=== PATIENT | female | born 1975 | race Two or more races ===

== ENCOUNTER 2016-10-11 16:35 | Inpatient (IN) | payer BC ==
[2016-10-11 17:38] VITALS: BMI 63.6
[2016-10-11] MEDS ORDERED: OXYTOCIN 10 UNIT/ML 1 ML VIAL IM PRN (17:39)
[2016-10-11] MEDS ORDERED: METHYLERGONOVINE 0.2 MG/ML 1 ML AMP IM PRN (17:39)
[2016-10-11] MEDS ORDERED: CARBOPROST TROMETHAMINE 250 MCG/ML 1 ML AMP IM PRN (17:39)
[2016-10-11] MEDS ORDERED: LIDOCAINE 1% (PF) 10 MG/ML (30 ML SDV) SQ PRN (17:39)
[2016-10-11] MEDS ORDERED: TERBUTALINE 1 MG/ML VIAL SQ PRN (17:39)
[2016-10-11 17:49] LABS: Basophils % (A) 1 %; CH 30.4; CHCM 34.6; Eosinophils % (A) 0 %; HCT 37.5 % (34.0-46.0); HDW 2.82; Luc # (Auto) 0.22; Luc % (Auto) 3; Lymphocytes # (A) 1.3 k/uL (1.0-4.8); Lymphocytes % (A) 16 %; MCH 30.6 pg (25.0-35.0); MCHC 34.6 g/dL (31.0-37.0); MCV 88.4 fL (80.0-100.0); Mean Platelet Volume 6.8; Monocytes # (A) 0.5 k/uL (0-1.0); Monocytes % (A) 6 %; Neutrophils % (A) 74 %; RBC 4.24 m/uL (3.80-5.40); RDW 15.1 % (11.5-15.5); WBC 8.1 k/uL (3.8-10.6); WBC (Perox) 7.84
[2016-10-11] MEDS: LACTATED RINGERS 1,000 ML IV SCH ×2 (17:57→23:34)
[2016-10-11] MEDS: BUTORPHANOL 1 MG/ML 1 ML VIAL IV PRN ×2 (17:59→19:53)
[2016-10-11] MEDS ORDERED: OXYTOCIN 20 UNITS/1000 ML NS 1,000 ML IV SCH (20:00)
[2016-10-11] MEDS ORDERED: BUPIVACAINE (PF) 0.25% 30 ML VIAL ONE (20:40)
[2016-10-11] MEDS ORDERED: SODIUM CHLORIDE 0.9% 100 ML BAG ONE (20:40)
[2016-10-11] MEDS ORDERED: fentaNYL (PF) 50 MCG/ML 5 ML AMP ONE (20:40)
[2016-10-11] MEDS ORDERED: CITRIC ACID-SODIUM CITRATE 15 ML CUP PO ONE (23:42)
[2016-10-11] MEDS ORDERED: ceFAZolin 2 GM in SODIUM CHLORIDE 0.9% 100 ML IVPB ONE (23:42)
[2016-10-11] MEDS ORDERED: ONDANSETRON 4 MG/2 ML VIAL ONE (23:51)
[2016-10-11] MEDS ORDERED: OXYTOCIN 10 UNIT/ML 1 ML VIAL ONE (23:51)
[2016-10-11] MEDS ORDERED: ceFAZolin 1,000 MG VIAL ONE (23:51)
--- NOTE | 2016-10-11 23:51 | P.HPOB ---
History of Present Illness H&P Date: 10/11/16 Chief Complaint: Spontaneous rupture of membranes This is a 41-year-old 1 para 0 woman with an estimated due date of 10/08 based on LMP consistently with second trimester ultrasound who presents to labor and delivery triage with spontaneous rupture of membranes at approximately 1530 today. Evaluation in triage reveals grossly ruptured membranes with thick meconium-stained fluid. She was 1-2 cm dilated and irregularly leatha. has been uncomplicated. She is advanced maternal age. A portion of the was spent in her home country of [place]. She has fibroid on ultrasound, the largest being 5.4 cm. Laboratory data: Blood type AB+, antibody screen negative, rubella immune, VDRL nonreactive, hepatitis B surface antigen negative, HIV negative, group B strep negative, diabetes screening within normal limits. Review of Systems All systems: negative Past Medical History Additional Past Medical History / Comment(s): Fibroid uterus History of Any Multi-Drug Resistant Organisms: None Reported Additional Past Surgical History / Comment(s): liopoma right back area 2014 Past Psychological History: No Psychological Hx Reported Smoking Status: Never smoker Past Drug Use History: None Reported - Past Family History Mother Family Medical History: No Reported History Father Family Medical History: Cancer Medications and Allergies Home Medications Medication Instructions Recorded Confirmed Type Pnv,Calcium 72/Iron/Folic Acid 1 tab PO DAILY 10/11/16 10/11/16 History [ Plus Tablet] Allergies Allergy/AdvReac Type Severity Reaction Status Date / Time No Known Allergies Allergy Verified 10/11/16 16:57 Exam - Vital Signs Vital signs: Vital Signs Temp Pulse Resp BP Pulse Ox 10/11/16 16:59 97.9 F 71 16 109/68 96 10/11/16 16:56 97.9 F 71 16 109/68 96 Intake and Output 10/11/16 10/11/16 10/12/16 14:59 22:59 06:59 Other: Weight 163 kg Patient Weight 10/12/16 06:59 Weight 163 kg Upon my initial evaluation the patient has been admitted and with the Pitocin augmentation. She has received an epidural anesthetic. On pelvic examination the cervix is 4 cm dilated, 80% effaced and the vertex is in the -2 station. There is some At formation. Review of heart rate tracing shows recent episode of bradycardia down to 60 bpm for approximately 3 minutes with slow return to baseline. This is the second such unprompted episode. Intervening heart rate tracing looks overall reassuring with good variability and no repetitive decelerations. She is leatha every 2 minutes. Meconium-stained fluid is noted. Results Result Diagrams: 10/11/16 17:19 Assessment and Plan (1) Advanced maternal age (AMA) in Status: Acute (2) Fibroid uterus Status: Acute (3) Meconium in amniotic fluid Status: Acute (4) Spontaneous rupture of membranes Status: Acute Plan: This is a 41-year-old 1 para 0 woman at 40-3/7 weeks gestation with spontaneous rupture of membranes and meconium-stained fluid. She did receive Pitocin induction of labor and an epidural anesthetic. She has progressed to 4 cm dilated and recently had a significant bradycardic episode down to the 60 bpm. Currently heart tones are reassuring. She had a on similar episode several hours ago with intervening heart tones being reassuring. Due to the thick meconium-stained fluid, remoteness from delivery and recent bradycardic episode section was offered to the patient and her . After some discussion of risks, benefits and recovery they wish to proceed with primary low transverse section. Risks were reviewed and include bleeding, transfusion, infection, injury to bowel, bladder, ureters or the infant. Possible impact on future deliveries. Possible anesthesia complications, DVT or PE. Patient and her voiced understanding of these risks and requests to proceed with primary low transverse section. Time with Patient: Greater than 30
[2016-10-12] MEDS ORDERED: diphenhydrAMINE 25 MG CAP PO PRN (00:41)
[2016-10-12] MEDS ORDERED: diphenhydrAMINE 50 MG CAP PO PRN (00:41)
[2016-10-12] MEDS ORDERED: Acetaminophen-Codeine 300-30mg TAB PO PRN ×2 (00:41)
[2016-10-12] MEDS ORDERED: ZOLPIDEM 5 MG TAB PO PRN (00:41)
[2016-10-12] MEDS ORDERED: NALOXONE 0.4 MG/ML 1 ML VIAL IV PRN (00:41)
[2016-10-12] MEDS ORDERED: SIMETHICONE 80 MG CHEWABLE PO PRN (00:41)
[2016-10-12] MEDS ORDERED: HYDROmorphone PCA 5 MG/25 ML SYRINGE IV PRN (00:41)
[2016-10-12] MEDS ORDERED: METOCLOPRAMIDE 5 MG/ML 2 ML VIAL IVP PRN (00:41)
[2016-10-12] MEDS ORDERED: diphenhydrAMINE 50 MG/ML 1 ML VIAL IVP PRN ×2 (00:41)
[2016-10-12] MEDS ORDERED: ACETAMINOPHEN TAB 325 MG TAB PO PRN (00:41)
[2016-10-12] MEDS ORDERED: ONDANSETRON 4 MG/2 ML VIAL IVP PRN (00:41)
--- NOTE | 2016-10-12 00:41 | P.OP ---
Date of Procedure: 10/12/16 Preoperative Diagnosis: Intrauterine at 40-3/7 weeks gestation Meconium-stained fluid heart rate deceleration Fibroid uterus Postoperative Diagnosis: Same plus Nuchal cord 2 True knot in the umbilical cord Procedure(s) Performed: Primary low transverse section Implants: Anesthesia: epidural Surgeon: Donna Laughlin Director Auto #1: Swetha Chavez Estimated Blood Loss (ml): 500 IV fluids (ml): 1,000 Urine output (ml): 100 Pathology: other (Placenta) Condition: stable Disposition: floor Indications for Procedure: heart rate deceleration, meconium-stained fluid, postdates, remote from delivery. Operative Findings: Male infant in the vertex presentation with nuchal cord 2. True knot in the umbilical cord. Calcified, intact three-vessel cord placenta. Large pedunculated left subserosal fibroid. Infant Apgars 2 at 1 minute, 9 at 5 minutes, 9 at 10 minutes. Weight 8 lbs. 9 oz., 3870 g. Description of Procedure: After the patient and her were counseled extensively and consent was obtained, she was taken to the operating room where her epidural anesthetic was bolused. She was position, prepped and draped in the dorsal supine position with a leftward tilt. After anesthetic was confirmed adequate, a low transverse skin incision was made and carried down to the underlying fascia sharply and with the electrocautery. The fascia was incised in the midline and extended bilaterally with the Smiley scissors. The inferior and superior aspects of the fascial incision were elevated and the underlying rectus muscles dissected off sharply. The rectus muscles were bluntly in the midline and the peritoneum was entered sharply. The peritoneal incision was extended inferiorly and superiorly with excellent visualization the bladder. The bladder blade was placed. Bladder flap was developed sharply. Low transverse uterine incision was then made and carried down to the amniotic membrane sharply. Membranes were ruptured and meconium-stained fluid was noted. The uterine incision was extended bilaterally bluntly. The 's head was delivered from the incision and nuchal cord 2 was reduced. The nose and mouth were bulb suctioned. The rest the was delivered onto the field and the cord was clamped and cut. A true knot was noted in the umbilical cord. The was taken to the warmer where an initial Apgars were 2 at 1 minute. With resuscitation 5 minute and 10 minute Apgars were both benign. Weight was 8 lbs. 9 oz. An intact but calcified three-vessel cord placenta was manually removed and the uterus was exteriorized. Approximately 10 cm pedunculated left fundal fibroid was noted. The uterine incision was delineated with Vila clamps after the uterus was cleared of all clot and debris. The uterine incision was then closed in a running locked fashion with 0 Vicryl suture followed by second imbricating layer of the same. Additional [id number] sutures were placed for hemostasis. The uterus was returned to the abdomen and the gutters were cleared of all clot and debris. The uterine incision was reinspected and noted to be hemostatic. The rectus muscles, fascial edges and peritoneal edges were inspected and noted to be hemostatic. The peritoneum was reapproximated in the midline. The fascia was then closed in a running fashion with 0 Vicryl suture. The subcuticular tissue was irrigated and reapproximated with 3-0 Vicryl. The skin was then closed in a subcutaneous fashion with 4-0 Vicryl suture. The uterus was massaged and was noted to be firm at the level of the umbilicus. All counts reported to me as correct by the operating room staff. The patient was transported to recovery in good condition.
[2016-10-12] MEDS ORDERED: OXYTOCIN 20 UNITS/1000 ML NS 1,000 ML IV SCH (00:45)
[2016-10-12] MEDS: KETOROLAC 30 MG/ML 1 ML VIAL IVP PRN ×3 (06:06→19:53)
[2016-10-12] MEDS: SENNOSIDES-DOCUSATE SODIUM 1 EACH TAB PO SCH ×2 (09:04→19:53)
--- NOTE | 2016-10-12 10:41 | P.PN ---
Progress Note - Text Postop day 0. Patient is currently breast-feeding the in the special care nursery. Baby is doing very well and will be discharged to the floor this morning. She complains of very minimal pain with use of the STUDENT DEAN device. She is ambulating and voiding without difficulty. Routine care.
[2016-10-12] MEDS: LACTATED RINGERS 1,000 ML IV SCH ×2 (17:24→17:25)
[2016-10-13] MEDS ORDERED: IBUPROFEN 600 MG TAB PO ONE (02:00)
[2016-10-13 07:34] LABS: Basophils % (A) 0 %; CH 30.5; CHCM 34.2; Eosinophils # (A) 0.1 k/uL (0-0.7); Eosinophils % (A) 1 %; HCT 29.5 % (34.0-46.0); HGB 10.1 gm/dL (11.4-16.0); Luc # (Auto) 0.17; Luc % (Auto) 2; Lymphocytes # (A) 1.1 k/uL (1.0-4.8); Lymphocytes % (A) 11 %; MCH 30.6 pg (25.0-35.0); MCHC 34.2 g/dL (31.0-37.0); MCV 89.7 fL (80.0-100.0); Mean Platelet Volume 6.8; Monocytes # (A) 0.4 k/uL (0-1.0); Monocytes % (A) 5 %; Neutrophils # (A) 7.7 k/uL (1.3-7.7); Neutrophils % (A) 81 %; RBC 3.28 m/uL (3.80-5.40); RDW 15.2 % (11.5-15.5); WBC 9.5 k/uL (3.8-10.6); WBC (Perox) 9.66
--- NOTE | 2016-10-13 07:50 | P.PN ---
Subjective Principal diagnosis: Postoperative day #1 Slept well. Pain well managed. Positive flatus. Objective - Vital Signs Vital signs: Vital Signs Temp 98.4 F 10/13/16 00:00 Pulse 89 10/13/16 00:00 Resp 16 10/13/16 00:00 BP 100/62 10/13/16 00:00 Pulse Ox 97 10/13/16 00:00 Intake & Output 10/12/16 10/13/16 10/13/16 18:59 06:59 18:59 Output Total 900 Balance -900 Output: Urine 900 Other: # Voids 1 - Constitutional General appearance: Present: average body habitus, cooperative - EENT Eyes: Present: PERRLA ENT: Present: hearing grossly normal - Neck Neck: Present: normal ROM Thyroid: bilateral: normal size - Respiratory Respiratory: bilateral: CTA - Cardiovascular Rhythm: regular - Gastrointestinal General gastrointestinal: Present: normal bowel sounds - Integumentary Integumentary Comment(s): Low transverse incision clean and dry, well approximated, intact. Under C-arm, midline, symmetric, 18 week size - Neurologic Neurologic: Present: CNII-XII intact - Musculoskeletal Musculoskeletal: Present: gait normal, strength equal bilaterally - Psychiatric Psychiatric: Present: A&O x's 3, appropriate affect, intact judgment & insight - Labs CBC & Chem 7: 10/13/16 07:07 Labs: Abnormal Lab Results - Last 24 Hours (Table) 10/13/16 Range/Units 07:07 RBC 3.28 L (3.80-5.40) m/uL Hgb 10.1 L (11.4-16.0) gm/dL Hct 29.5 L (34.0-46.0) % Assessment and Plan Plan: Continue postoperative care. Advanced diet and activity. Likely circumcision tomorrow. Time with Patient: Less than 30
[2016-10-13] MEDS: SENNOSIDES-DOCUSATE SODIUM 1 EACH TAB PO SCH ×2 (07:53→23:49)
[2016-10-13] MEDS: IBUPROFEN 600 MG TAB PO PRN ×2 (07:53→16:10)
[2016-10-14] MEDS: IBUPROFEN 600 MG TAB PO PRN (00:42)
[2016-10-14] MEDS: LACTATED RINGERS 1,000 ML IV SCH ×2 (01:11→01:12)
--- NOTE | 2016-10-14 07:56 | P.DS ---
Providers Date of admission: 10/11/16 16:35 Expected date of discharge: 10/14/16 Attending physician: Donna Laughlin Primary care physician: Stacey Loyola [facility] Course: A 41-year-old 1 para 0 EDC 10/08/2016 at 40-3/7 weeks' gestation. Patient presented in active spontaneous labor. was essentially unremarkable, group B strep cultures negative, rubella status immune. Dated history and physical for details. Fluid was noted to contain thick meconium. Through the course of labor, heart rate was noted to decline and decision was made to proceed with stat section. Patient underwent a stat low transverse section and gave to a liveborn male with scores of 29 and 9 at one and 5 and 10 minutes. weighed 3870 g or 8 lbs. 9 oz. Intraoperatively the patient did well, please see dictated operative note for details. This morning the patient is doing well. She is voiding, ambulating, and passing flatus without difficulty. Vital signs are stable and she is afebrile. Circumcision has been performed. The incision is clean and dry, intact, the fundus is firm and midline, symmetric, 18 week size. Extremities reveal +1 edema. Breasts are not engorged. Breast-feeding is going well. She is being discharged home in very good condition. She will follow-up in the office with me in 2 weeks for incision check. I have reminded her no intercourse, tampons or douching. She will use [id number] ibuprofen products as needed for pain. I've asked her to call with any fevers shakes or chills, foul smelling or copious lochia, with the passage of large blood clots, with any pain not alleviated by [id number] ibuprofen, or indeed with any concerns. Patient Condition at Discharge: Good Plan - Discharge Summary New Discharge Prescriptions: No Action Pnv,Calcium 72/Iron/Folic Acid [ Plus Tablet] 1 tab PO DAILY Discharge Medication List Pnv,Calcium 72/Iron/Folic Acid [ Plus Tablet] 1 tab PO DAILY 10/11/16 [ History] Follow up Appointment(s)/Referral(s): Stacey Loyola MD [Primary Care Provider] - 2 Weeks Discharge Disposition: HOME SELF-CARE
[2016-10-14] MEDS: SENNOSIDES-DOCUSATE SODIUM 1 EACH TAB PO SCH (09:41)
[2016-10-14 09:46] VITALS: BP 109/66; PULSE 76; RESP 20; TEMP 97.5
== END 2016-10-14 10:40 | disposition home or self-care (01) | DRG 766 ==
LOC: 4FBP 16:35
PROVIDERS: ADMIT Obstetrics & Gynecology; ATTEND Obstetrics & Gynecology
PROC: 00HU33Z Insertion of Infusion Device into Spinal Canal, Percutaneous Approach (ICD-10-PCS; 2016-10-11)
PROC: 3E0R3CZ (ICD-10-PCS; 2016-10-11)
PROC: 10D00Z1 Extraction of Products of Conception, Low, Open Approach (ICD-10-PCS; principal; 2016-10-12)
DX: O77.0 Labor and delivery complicated by meconium in amniotic fluid (principal); D25.2 Subserosal leiomyoma of uterus; O76 Abnormality in fetal heart rate and rhythm complicating labor and delivery; O69.2XX0 Labor and delivery complicated by other cord entanglement, with compression, not applicable or unspecified; O34.13 Maternal care for benign tumor of corpus uteri, third trimester; O48.0 Post-term pregnancy; Z37.0 Single live birth; Z3A.40 40 weeks gestation of pregnancy; Z79.899 Other long term (current) drug therapy
CPT/HCPCS: 85025; 88307

== ENCOUNTER → 2018-10-26 | Outpatient (CLI) | payer OTHER ==
--- NOTE | 2018-10-26 16:11 | XR ---
EXAMINATION TYPE: XR chest 2V DATE OF EXAM: 10/26/2018 COMPARISON: NONE HISTORY: Cough, R05 TECHNIQUE: Frontal and lateral views of the chest are obtained. FINDINGS: There is no focal air space opacity, pleural effusion, or pneumothorax seen. The cardiac silhouette size is within normal limits. The osseous structures are intact. There is bronchial wall thickening. IMPRESSION: Correlate for bronchitis, reactive airways disease, follow-up as indicated.
--- NOTE | 2018-10-26 17:02 | US ---
EXAMINATION TYPE: US abdomen complete DATE OF EXAM: 10/26/2018 COMPARISON: NONE CLINICAL HISTORY: 43-year-old female N97.9 FEMALE INFERTILITY. TECHNIQUE: Multiple sonographic images of the abdomen are obtained. FINDINGS: EXAM MEASUREMENTS: Liver Length: 13.3 cm Gallbladder Wall: 0.2 cm CBD: 0.3 cm Spleen: 8.8 cm Right Kidney: 10.9 x 4.3 x 5.2 cm Left Kidney: 10.3 x 6.2 x 4.5 cm Pancreas: Suboptimal visualization of the pancreatic tail secondary to shadowing from bowel gas. Liver: wnl Gallbladder: wnl Evidence for sonographic Goff's sign: No CBD: wnl Spleen: wnl Right Kidney: No hydronephrosis. Left Kidney: No hydronephrosis. Upper IVC: wnl Abd Aorta: wnl IMPRESSION: Suboptimal visualization of the pancreatic tail. Otherwise, unremarkable sonographic examination of t he abdomen.
== END | disposition home or self-care (01) ==
LOC: RADUSWWP 12:26
PROVIDERS: ATTEND Family Medicine
DX: N97.9 Female infertility, unspecified (principal); R05 Cough
CPT/HCPCS: 71046; 76700